=== PATIENT | female | born 1965 | race Two or more races ===

== ENCOUNTER 2022-04-19 05:30 | Day surgery (SDC) | payer OTHER ==
[~2022-04-19] VITALS: Ht 167.6 cm; Wt 83.9 kg
[~2022-04-19 05:30] MED LIST: ABILIFY5 MG PO; EFFEXOR XR150 MG PO; LAMICTAL100 MG PO; XANAX2 MG PO; [UNRECOGNIZED DRUG - OTHER] PO; [UNRECOGNIZED DRUG - OTHER] PO
== END 2022-04-19 17:20 | disposition home or self-care (01) ==
LOC: CIR.AMB 05:30
PROVIDERS: ATTEND Otolaryngology
DX: C73 Malignant neoplasm of thyroid gland (principal); E06.3 Autoimmune thyroiditis; Z88.6 Allergy status to analgesic agent; I10 Essential (primary) hypertension; E78.00 Pure hypercholesterolemia, unspecified; Z86.16 Personal history of COVID-19; F17.210 Nicotine dependence, cigarettes, uncomplicated; E16.2 Hypoglycemia, unspecified; Z20.822 Contact with and (suspected) exposure to COVID-19